=== PATIENT | male | born 1995 | race African-American/Black ===

== ENCOUNTER 2021-01-17 09:08 | Emergency (ER) | payer MEDICAID ==
[~2021-01-17] VITALS: Ht 167.6 cm; Wt 155.0 kg
[~2021-01-17 09:08] MED LIST: INSLIS SUBCUT; INSU100I28 SQ; LIP40 PO; LISI-186 PO; METF-873 PO
[2021-01-17 10:38] VITALS: BP 135/60
== END 2021-01-17 10:42 | disposition home or self-care (01) ==
LOC: ER 09:08 → CANBEDREQ 16:14
DX: M79.662 Pain in left lower leg (principal); E11.9 Type 2 diabetes mellitus without complications; I10 Essential (primary) hypertension; Z79.4 Long term (current) use of insulin
CPT/HCPCS: 93970; 99284

== ENCOUNTER 2022-04-08 18:48 | Emergency (ER) | payer MEDICAID ==
[~2022-04-08] VITALS: Ht 167.6 cm; Wt 159.8 kg
[2022-04-08] MEDS ORDERED: IBUPROFEN 600MG TABLET PO STA (23:23)
[2022-04-09] MEDS ORDERED: HYDR25SU37 RC (00:15)
[2022-04-09] MEDS ORDERED: SUCR1TAB30 PO (00:15)
[2022-04-09] MEDS ORDERED: METR-167 PO (00:15)
[2022-04-09] MEDS ORDERED: NAPR-681 PO (00:15)
[2022-04-09 00:25] VITALS: BP 142/86
== END 2022-04-09 00:27 | disposition home or self-care (01) ==
LOC: ER 18:48
DX: K62.89 Other specified diseases of anus and rectum (principal); K60.2 Anal fissure, unspecified; B09 Unspecified viral infection characterized by skin and mucous membrane lesions; E11.9 Type 2 diabetes mellitus without complications; I10 Essential (primary) hypertension; Z20.822 Contact with and (suspected) exposure to COVID-19; Z79.4 Long term (current) use of insulin
CPT/HCPCS: 87070; 87426; 87430; 87593; 99283; C9803